=== PATIENT | female | born 1995 | race Caucasian/White ===

== ENCOUNTER 2018-10-30 00:25 | Emergency (ER) | payer OTHER ==
[~2018-10-30] VITALS: Ht 160 cm; Wt 59.0 kg
[2018-10-30] MEDS ORDERED: BACTRIM DS TAB1 EACH PO (01:34)
[2018-10-30] MEDS ORDERED: KEFLEX500 M1 PO (01:34)
[2018-10-30 01:56] VITALS: BP 97/64
== END 2018-10-30 02:07 | disposition home or self-care (01) ==
LOC: ER 00:25
DX: S00.83XA Contusion of other part of head, initial encounter (principal); S16.1XXA Strain of muscle, fascia and tendon at neck level, initial encounter; F10.129 Alcohol abuse with intoxication, unspecified; L03.116 Cellulitis of left lower limb; Z88.5 Allergy status to narcotic agent; Z88.8 Allergy status to other drugs, medicaments and biological substances; W00.0XXA Fall on same level due to ice and snow, initial encounter; Y93.89 Activity, other specified; Y92.89 Other specified places as the place of occurrence of the external cause; Y99.8 Other external cause status